=== PATIENT | female | born 1990 | race Two or more races ===

== ENCOUNTER → 2017-02-02 | Outpatient (CLI) | payer OTHER, BC ==
[2015-09-23 20:35] VITALS: BP 110/68
[~2017-02-02] MED LIST: AZIT250T6 PO; BENZ100C PO; NITR100C62 PO; PRED20TA PO
--- NOTE | 2017-02-02 09:25 | RAD ---
Indication:Right upper quadrant pain Grayscale images of the abdomen were obtained. Comparison none. Liver:A focal mass lesion is not seen and the visualized liver. Gallbladder:Normal. The common bile duct diameter of approximately 2 mm is normal Spleen:Normal Pancreas:Only the head and proximal body of the pancreas are seen. The more distal body and tail are obscured. Kidneys:Normal Abdominal aorta and IVC:As visualized normal Ancillary findings:None Impression:No acute or significant finding seen in the abdomen. The pancreas is partially obscured
== END | disposition home or self-care (01) ==
LOC: US 07:52
PROVIDERS: ATTEND Family Medicine
DX: R10.11 Right upper quadrant pain (principal); R07.89 Other chest pain; R00.2 Palpitations
CPT/HCPCS: 76700

== ENCOUNTER → 2018-05-18 | Outpatient (CLI) | payer BC, OTHER ==
[2015-09-23 20:35] VITALS: BP 110/68
--- NOTE | 2018-05-18 13:02 | RAD ---
EXAM: Abdomen sonogram. HISTORY: Swelling. TECHNIQUE: Sonographic imaging of the abdomen was performed. COMPARISON: None. FINDINGS: There is no suspicious finding within the left ventral abdominal wall at the site of reported swelling. IMPRESSION: Unremarkable sonographic imaging of the abdomen targeted to the site of reported swelling. Electronically signed by: Edita Zimmer MD (05/18/2018 12:57 PM) [place] [id number]
== END | disposition home or self-care (01) ==
LOC: US 08:36
PROVIDERS: ATTEND Family Medicine
DX: R19.01 Right upper quadrant abdominal swelling, mass and lump (principal)
CPT/HCPCS: 76705